=== PATIENT | female | born 1965 | race Caucasian/White ===

== ENCOUNTER → 2020-03-17 11:17 | Outpatient (CLI) | payer BC, SELFPAY ==
--- NOTE | ~2020-03-17 | XR_ITS ---
XR lumbar spine min 4V DATE: 03/17/2020 11:52 INDICATION: Lumbar back pain TECHNIQUE: AP, lateral, flexion and extension lateral and coned lateral lumbosacral views COMPARISON: None FINDINGS: Diffuse osteopenia. There is slight levoscoliosis. No fracture or bone destruction or spondylolisthesis. No instability on flexion or extension. There appears to be moderate loss of interspace height at L5-S1. The remaining lumbar interspaces franklyn ear well preserved. Incidentally noted is a prominent amount of echogenic fecal material throughout the colon. IMPRESSION: Osteopenia Moderate loss of interspace height at L5-S1 Prominent amount of fecal material throughout the colon Reviewed, dictated and finalized at location B. E REFINISHER
== END ==
DX: M85.88 Other specified disorders of bone density and structure, other site (principal)
CPT/HCPCS: 72110

== ENCOUNTER → 2020-05-04 12:10 | Outpatient (CLI) | payer BC, SELFPAY ==
--- NOTE | ~2020-05-04 | MR_ITS ---
EXAMINATION: MR sacrum wo con DATE: 05/04/2020 13:07 INDICATION: Tarlov cyst. Sacrococcygeal pain. Bilateral leg numbness. TECHNIQUE: Magnetic resonance imaging (MRI) of the sacrum was performed without intravenous contrast. Sequences included sagittal PD-weighted FS FSE and T2-weighted FS FSE and STIR FSE, coronal oblique and axial oblique T1-weighted FSE and T2-weighted FS FSE, and coronal oblique STIR FSE. COMPARISON: Lumbar spine radiographs 03/17/2020 FINDINGS: There is moderately decreased disc height at L5-S1 with endplate remodeling. At L5-S1, disc is bulgin g with an annular fissure and mild bilateral neural foraminal stenosis. There is cystic dilatation of the nerve root sleeves bilaterally at S1 and S2 and on the right at S3. There is mild osteoarthritis of the sacroiliac joints. IMPRESSION: 1. Moderate lower lumbar spondylosis. Reviewed, dictated and finalized at location A. 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
== END ==
PROVIDERS: PCP Physician Assistant
DX: M71.38 Other bursal cyst, other site (principal); G58.9 Mononeuropathy, unspecified; G96.12 Meningeal adhesions (cerebral) (spinal); M47.816 Spondylosis without myelopathy or radiculopathy, lumbar region
CPT/HCPCS: 72195

== ENCOUNTER → 2020-06-09 08:44 | Outpatient (CLI) | payer BC, SELFPAY ==
--- NOTE | ~2020-06-09 | MR_ITS ---
EXAMINATION: MR lumbar spine wo con DATE: 06/09/2020 09:20 INDICATION: Low back pain. Bilateral leg pain. TECHNIQUE: Magnetic resonance imaging (MRI) of the lumbar spine was performed without intravenous con trast. Sequences included sagittal T2-weighted FSE, sagittal T2-weighted FS FSE, sagittal T1-weighted FSE, and axial T2-weighted FSE. COMPARISON: Lumbar spine radiographs 03/17/2020 FINDINGS: Bone alignment is normal. There are Schmorl's nodes at multiple levels. There is mildly dec reased disc height at L5-S1 with endplate remodeling. The distal spinal cord signal intensity is norm al. The conus medullaris is at L1. There are Tarlov cysts at S1 and S2. The following disc levels are specifically discussed: L1-L2: The disc does not extend beyond the endplate margin. There is no facet joint osteoarthritis. T here is no neural foraminal stenosis. There is no central canal stenosis. L2-L3: The disc does not extend beyond the endplate margin. There is no facet joint osteoarthritis. T here is no neural foraminal stenosis. There is no central canal stenosis. L3-L4: The disc is bulging and has an annular fissure. There is mild bilateral facet joint osteoarthr itis. There is mild bilateral neural foraminal stenosis. There is mild central canal stenosis. L4-L5: The disc is bulging and has an annular fissure. There is mild left facet joint osteoarthritis. There is mild bilateral neural foraminal stenosis. There is mild central canal stenosis. L5-S1: The disc is bulging. There is mild left facet joint osteoarthritis. There is mild bilateral ne ural foraminal stenosis. There is mild central canal stenosis. IMPRESSION: 1. Mild lumbar spondylosis. Reviewed, dictated and finalized at location A. MBLER TRACTOR IMPRESSION: 1. Mild lumbar spondylosis.
== END ==
DX: M51.16 Intervertebral disc disorders with radiculopathy, lumbar region (principal); M47.896 Other spondylosis, lumbar region
CPT/HCPCS: 72148

== ENCOUNTER → 2020-10-10 08:16 | Outpatient (CLI) | payer BC, SELFPAY ==
--- NOTE | ~2020-10-10 | CT_ITS ---
EXAMINATION: CT abdomen pelvis wo/w con DATE: 10/10/2020 08:51 INDICATION: Hematuria TECHNIQUE: Computed tomography (CT) of the abdomen and pelvis was performed without and subsequently with 130 cc Omnipaque 350 intravenous contrast. Automated exposure control and iterative reconstructi on technique were employed. Exam dose: 1652.39 mGy-cm total exam DLP. COMPARISON: None. FINDINGS: The lung bases are clear of infiltrate or consolidation. Cardiomegaly. No pericardial or pl eural effusion. There are a few several millimeter probable hepatic cysts. The gallbladder is present and appears unr emarkable. No bile duct or pancreatic duct dilatation. No pancreatic mass lesion or calcification. Sp lenic size is within normal range. Normal morphology of the adrenal glands. Normal caliber of the abdominal aorta. No intraperitoneal or retroperitoneal or pelvic mass lesion or adenopathy or ascites. 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 5 mm right renal cyst. No other renal space occupying mass lesion is evident. No urinary tract calculus or hydroureteronephrosis. The urinary bladder is unremarkable. Status post hysterectomy. Normal appendix. No bowel obstruction, bowel wall thickening, pneumatosis or intraperitoneal free air . Moderate degenerative disc disease at L5-S1. No suspicious osteolytic or osteoblastic lesions. IMPRESSION: Duplication of left kidney and ureter 5 mm right renal cyst Several small hepatic cysts Status post hysterectomy Reviewed, dictated and finalized at Location A. Reviewed, dictated and finalized at location B.
== END ==
PROVIDERS: PCP Physician Assistant; Visit Provider Physician Assistant
DX: R31.9 Hematuria, unspecified (principal); N28.1 Cyst of kidney, acquired; K76.89 Other specified diseases of liver
CPT/HCPCS: 74178; Q9967

== ENCOUNTER → 2021-04-19 07:22 | Outpatient (CLI) | payer BC, SELFPAY ==
--- NOTE | ~2021-04-19 | MR_ITS ---
EXAMINATION: MR lumbar spine wo [facility] EXAM DATE: 04/19/2021 08:09 INDICATION: Intervertebral disc disorders with radiculopathy intervertebral disc disorders with radic ulopathy. TECHNIQUE: Multi-sequential, multiplanar MR images of the lumbar spine were obtained without contrast . Sagittal T1, T2, T2 fat saturation images. Axial T2 weighted images. Comparison is made to prior examination from 06/09/2020. FINDINGS: There is moderate disc disease at L5-S1, mild at the other thoracolumbar levels. The conus medullaris terminates at the L1/2 level and has normal signal intensity and morphology. Tarlov cyst posterior to S1 and S2 segment. Thoracolumbar dilated nerve root sleeves. There is 3 mm retrolisthesi s L5 on S1. There are scattered focal signal abnormalities consistent with hemangiomata, otherwise wi thout focal suspicious marrow signal abnormalities. Paraspinal soft tissue is unremarkable. Level by level evaluation: T12-L1: Disc does not extend beyond the endplate margin. Facet arthropathy: Minimal. Neural foraminal stenosis: No stenosis. Central canal stenosis: No stenosis. L1-L2: Disc does not extend beyond the endplate margin. Facet arthropathy: Minimal. Neural foraminal stenosis: No stenosis. Central canal stenosis: No stenosis. L2-L3: There is a mild diffuse disc bulge. Facet arthropathy: Mild. Neural foraminal stenosis: No stenosis. Central canal stenosis: No stenosis. L3-L4: There is a mild diffuse disc bulge. Facet arthropathy: Mild. Neural foraminal stenosis: Minimal bilateral. Central canal stenosis: No stenosis. L4-L5: There is a mild diffuse disc bulge. Facet arthropathy: Mild. Neural foraminal stenosis: Mild left, minimal right. Central canal stenosis: Mild. L5-S1: There is a mild diffuse disc bulge. Facet arthropathy: Mild. Neural foraminal stenosis: Mild left. Central canal stenosis: No stenosis. On prior study there is some edema along the anterior aspect of the L5-S1 endplate, and on this exami nation that edema is posteriorly. Could be endplate degenerative change or very minimal compressions. IMPRESSION: 1. L5-S1 grade 1 retrolisthesis, moderate disc disease. 2. L5-S1 endplate degenerative signal change versus very minimal compressions acute or subacute. 3. Otherwise relatively mild lumbar spondylosis. Reviewed, dictated and finalized at location B. GER [employer]LE [employer]AIL
== END ==
PROVIDERS: PCP Physician Assistant
DX: M51.16 Intervertebral disc disorders with radiculopathy, lumbar region (principal); M47.815 Spondylosis without myelopathy or radiculopathy, thoracolumbar region; M48.05 Spinal stenosis, thoracolumbar region; M47.817 Spondylosis without myelopathy or radiculopathy, lumbosacral region; M48.07 Spinal stenosis, lumbosacral region
CPT/HCPCS: 72148

== ENCOUNTER → 2021-04-26 08:15 | Outpatient (CLI) | payer BC, SELFPAY ==
--- NOTE | ~2021-04-26 | MR_ITS ---
EXAMINATION: MR sacrum wo con DATE: 04/26/2021 09:20 INDICATION: Tarlov cyst. TECHNIQUE: Magnetic resonance imaging (MRI) of the sacrum was performed without intravenous contrast. Sequences included sagittal PD-weighted FS FSE and axial oblique and coronal oblique T1-weighted FSE and T2-weighted FS FSE. COMPARISON: Sacrum MRI 05/04/2020, CT abdomen and pelvis 10/10/2020 FINDINGS: Bone alignment is normal. No fracture. There is moderate degenerative disc disease at L5-S1. There is mild osteoarthritis of the sacroiliac joints. There is cystic dilatation of the nerve root sleeves b ilaterally at S1 and S2 and on the right at S3 measuring up to 2.2 x 1.3 x 1.6 cm on the right at S1. IMPRESSION: 1. Stable moderate lower lumbar spondylosis. 2. Stable cystic dilatation of the nerve root sleeves bilaterally at S1 and S2 and on the right at S3 . Reviewed, dictated and finalized at location A. VIORIST IMPRESSION: 1. Stable moderate lower lumbar spondylosis. 2. Stable cystic dilatation of the nerve root sleeves bilaterally at S1 and S2 and on the right at S3.
== END ==
DX: M71.38 Other bursal cyst, other site (principal); G58.9 Mononeuropathy, unspecified; G96.12 Meningeal adhesions (cerebral) (spinal); M51.17 Intervertebral disc disorders with radiculopathy, lumbosacral region; M47.816 Spondylosis without myelopathy or radiculopathy, lumbar region
CPT/HCPCS: 72195

== ENCOUNTER → 2022-07-20 07:33 | Outpatient (CLI) | payer BC, SELFPAY ==
--- NOTE | ~2022-07-20 | MR_ITS ---
MRI of the left foot CLINICAL HISTORY: Cyst TECHNIQUE: Sagittal T1-weighted and STIR images, axial T1-weighted, T1 fat-sat, and T2 fat-sat images , and coronal T1-weighted and proton-density fat-sat images were performed. Following intravenous adm inistration of 15 cc MultiHance gadolinium, T1-weighted fat-sat imaging was performed in the axial, c oronal, and sagittal planes. FINDINGS: There is mild amorphous marrow edema in the medial cuneiform, nonspecific. No evidence for osteomyelitis. There is mild degenerative change at the first metatarsophalangeal joint. No significa nt joint effusion identified. Flexor and extensor tendons are intact. No evidence for intermetatarsal bursitis or Rodriguez's neuroma. Intrinsic musculature of the foot demonstrate normal signal. Plantar fascia is intact. At the plantar aspect of the foot, at the level of the mid fourth metatarsal shaft, there is a 1 cm a morphous area of mild soft tissue edematous change (series 4 image 21, series 9 image 24 for example) . There is no associated postcontrast enhancement. At the dorsal aspect of the midfoot, just dorsal t o the naviculocuneiform articulation, there is a 2.8 x 1.3 x 2.8 cm lobulated cystic mass, just deep to the distal tibialis anterior tendon. No other soft tissue mass or fluid collection identified. IMPRESSION: 2.8 x 1.3 x 2.8 cm simple cystic mass just deep to the distal tibialis anterior tendon at the level o f the naviculocuneiform articulation. This could reflect tenosynovitis or ganglion cyst. 1 cm area of amorphous minimal soft tissue edema in the plantar subcutaneous soft tissues at the leve l of the mid fourth metatarsal shaft, without enhancement. This is nonspecific. Mild degenerative change at the first metatarsophalangeal joint. Reviewed, dictated and finalized at location . IMPRESSION: 2.8 x 1.3 x 2.8 cm simple cystic mass just deep to the distal tibialis anterior tendon at the level of the naviculocuneiform articulation. This could reflect tenosynovitis or ganglion cyst. 1 cm area of amorphous minimal soft tissue edema in the plantar subcutaneous so ft tissues at the level of the mid fourth metatarsal shaft, without enhancement . This is nonspecific. Mild degenerative change at the first metatarsophalangeal joint.
== END ==
PROVIDERS: PCP Physician Assistant; Visit Provider Podiatrist Foot & Ankle Surgery
DX: L72.8 Other follicular cysts of the skin and subcutaneous tissue (principal); M19.072 Primary osteoarthritis, left ankle and foot
CPT/HCPCS: 73720; A9577

== ENCOUNTER → 2022-12-13 13:08 | Outpatient (CLI) | payer BC, SELFPAY ==
--- NOTE | ~2022-12-13 | US_ITS ---
EXAMINATION: US pelvic complete w TV DATE: 12/13/2022 13:40 INDICATION: Postmenopausal bleeding TECHNIQUE: Multiple transabdominal and endovaginal sonographic images of the pelvis were obtained. COMPARISON: CT, 10/10/2020 FINDINGS: The uterus is surgically absent. The ovaries are not visualized due to bowel gas however no adnexal abnormality is seen. There is no free fluid in the pelvis. IMPRESSION: 1. No sonographic correlate for the patient's symptoms. Reviewed, dictated and finalized at location F.
== END ==
PROVIDERS: PCP Physician Assistant; Visit Provider Nurse Practitioner
DX: N95.0 Postmenopausal bleeding (principal)
CPT/HCPCS: 76830; 76856